=== PATIENT | male | born 1950 | race Caucasian/White ===

== ENCOUNTER 2017-08-04 11:52 | Emergency (ER) | payer OTHER ==
[2017-08-04 12:03] VITALS: BP 109/67
--- NOTE | 2017-08-04 12:21 | ED ---
Lower Extremity - HPI Summary HPI Summary: 66M presents with right hip pain since Tuesday. He states that he noticed some tightness to the area. He developed the pain Tuesday. He also noticed that he had like a bug bite Kaylin. He states the bug bite area has been spreading. No fevers or chills. No fatigue. No weakness. Has been using a cane to get around. States Tylenol has been helping. Has no back pain. states pain worst with ambulation. States pain is worse when walks on flat rather than stairs. He denies any recent tick exposures. He has been outside gardening. rash is not itchy. he denies any edema. no numbness or tingling. - History of Current Complaint Pain Intensity: 8 <Alise Meléndez - Last Filed: 08/04/17 13:30> <Luisa Woo - Last Filed: 08/04/17 13:38> - History of Current Complaint Chief Complaint: UCLowerExtremity Stated Complaint: HIP PAIN Time Seen by Provider: 08/04/17 12:09 - Allergies/Home Medications Allergies/Adverse Reactions: Allergies Allergy/AdvReac Type Severity Reaction Status Date / Time Sulfa (Sulfonamide Allergy Rash Verified 08/04/17 12:03 Antibiotics) PMH/Surg Hx/FS Hx/Imm Hx Endocrine/Hematology History: Denies: Hx Diabetes Cardiovascular History: Denies: Hx Congestive Heart Failure, Hx Hypertension, Hx Pacemaker/ICD History: Denies: Hx Renal Disease Musculoskeletal History: Denies: Hx Osteoporosis Sensory History: Denies: Hx Hearing Aid Psychiatric History: Denies: Hx Panic Disorder - Surgical History Surgery Procedure, Year, and Place: turp,hernia Infectious Disease History: No Infectious Disease History: Denies: Traveled Outside the [place] in Last 30 Days - Family History Known Family History: Positive: Hypertension - Social History Alcohol Use: Weekly Substance Use Type: Reports: None Smoking Status (MU): Former Smoker <Alise Meléndez - Last Filed: 08/04/17 13:30> Review of Systems Negative: Fever Negative: Chest Pain Negative: Shortness Of Breath Positive: Myalgia - hip pain right Positive: Rash All Other Systems Reviewed And Are Negative: Yes <Alise Meléndez - Last Filed: 08/04/17 13:30> Physical Exam Triage Information Reviewed: Yes Vital Signs On Initial Exam: Initial Vitals Temp Pulse Resp BP Pulse Ox 98 F 61 15 109/67 100 08/04/17 11:59 08/04/17 11:59 08/04/17 11:59 08/04/17 11:59 08/04/17 11:59 Vital Signs Reviewed: Yes Appearance: Positive: Well-Appearing Skin: Positive: Warm, Dry, Other - erythematous rash around bug bite appear lesions, no central clearing Head/Face: Positive: Normal Head/Face Inspection Eyes: Positive: Normal, Conjunctiva Clear Respiratory/Lung Sounds: Positive: Clear to Auscultation, Breath Sounds Present Cardiovascular: Positive: Normal, RRR Musculoskeletal: Positive: Strength/ROM Intact - right hip, Other - nontender back, tenderness right hip, good pulses, capillary refill<2 secs, pos LISA test Neurological: Positive: Normal Psychiatric: Positive: Normal <Alise Meléndez - Last Filed: 08/04/17 13:30> Vital Signs On Initial Exam: Initial Vitals Temp Pulse Resp BP Pulse Ox 98 F 61 15 109/67 100 08/04/17 11:59 08/04/17 11:59 08/04/17 11:59 08/04/17 11:59 08/04/17 11:59 <Luisa Woo - Last Filed: 08/04/17 13:38> Diagnostics - Vital Signs Vital Signs Temp Pulse Resp BP Pulse Ox 08/04/17 11:59 98 F 61 15 109/67 100 - Radiology hip Xray Interpretation: No Acute Changes Radiology Interpretation Completed By: Radiologist <Alise Meléndez - Last Filed: 08/04/17 13:30> - Vital Signs Vital Signs Temp Pulse Resp BP Pulse Ox 08/04/17 11:59 98 F 61 15 109/67 100 <Luisa Woo - Last Filed: 08/04/17 13:38> Lower Extremity Course/Dx - Course Course Of Treatment: 66M presents with right hip pain since Tuesday. He states that he noticed some tightness to the area. He developed the pain Kaylin. He also noticed that he had like a bug bite Kaylin. He states the bug bite area has been spreading. No fevers or chills. No fatigue. No weakness. Has been using a cane to get around. States Tylenol has been helping. Has no back pain. states pain worst with ambulation. States pain is worse when walks on flat rather than stairs. He denies any recent tick exposures. He has been outside gardening. on exam has tenderness right hip. pos LISA. neurovascular intact. on abdomen has appears to be bug bite with surrounding erythema. xray hip normal. will treat bug bite as cellulitis with spreading redness although may just be allergic reaction. will get lyme titer. will treat hip with RICE. patient understand and agrees with plan. - Diagnoses Differential Diagnosis/HQI/PQRI: Positive: Fracture (Closed), Sprain, Strain <Alise Meléndez - Last Filed: 08/04/17 13:30> <Luisa Woo - Last Filed: 08/04/17 13:38> - Diagnoses Provider Diagnoses: Right hip pain, Cellulitis of abdominal wall Discharge - Sign-Out/Discharge Documenting (check all that apply): Discharge/Admit/Transfer - Billing Disposition and Condition Condition: GOOD Disposition: Home <Alise Meléndez - Last Filed: 08/04/17 13:30> - Billing Disposition and Condition Condition: GOOD Disposition: Home <Luisa Woo - Last Filed: 08/04/17 13:38> - Discharge Plan Condition: Good Disposition: HOME Prescriptions: Cephalexin CAP* [Keflex CAP*] 500 mg PO BID #14 cap Patient Education Materials: Cellulitis (ED), Hip Pain (ED) Referrals: Shayna Weber MD [Primary Care Provider] - Additional Instructions: Take ibuprofen 600mg twice a day, take Tylenol every 6 hours as needed for pain will treat for potential cellulitis although may be just allergic reaction to bite, take Keflex twice a day for 7 days can apply hydrocortisone to rash Follow up with primary within 5 days Return to ED if develop fever, area of redness spreads after two days, or any new or worsening symptoms Attestation Statement User Type: Provider - I was available for consult. This patient was seen by the SHAMEKA. The patient was not presented to, seen by, or examined by me. -Chel <Luisa Woo - Last Filed: 08/04/17 13:38>
--- NOTE | 2017-08-04 12:59 | RAD ---
HISTORY: right hip pain COMPARISONS: None VIEWS: 3, Frontal view of the pelvis with frontal and frog-leg views of the right hip FINDINGS: BONE DENSITY: Normal. BONES: There is no displaced fracture. 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 ALIGNMENT: There is no dislocation. SOFT TISSUES: Unremarkable. OTHER FINDINGS: None. IMPRESSION: NO ACUTE OSSEOUS INJURY. IF SYMPTOMS PERSIST, RECOMMEND REPEAT IMAGING.
== END 2017-08-04 13:30 | disposition home or self-care (01) ==
LOC: UCEAST 11:52
DX: M25.551 Pain in right hip (principal); L03.311 Cellulitis of abdominal wall; Z88.2 Allergy status to sulfonamides; X58.XXXA Exposure to other specified factors, initial encounter; Y93.H2 Activity, gardening and landscaping; Z87.891 Personal history of nicotine dependence; Y92.89 Other specified places as the place of occurrence of the external cause
CPT/HCPCS: 86618; 99212; G0463